=== PATIENT | female | born 2000 | race Two or more races ===

== ENCOUNTER 2024-08-01 11:05 | Observation (INO) | payer MEDICAID ==
--- NOTE | 2024-08-01 12:39 | DVH ---
Procedure: US BIOPHYSICAL PROFILE 08/01/2024 12:05 PM Indication: nuchal x 2 Comparison: None Technique: Sonogram of gravid uterus utilizing grayscale and color techniques. FINDINGS: Single living intrauterine gestation. Presentation: Cephalic Placenta: Posterior, no previa heart rate: 164 bpm LANDRY: 13.4 cm, DVP: 4.6 cm Maternal cervix: Not visualized Other: The umbilical cord is draped around neck Biophysical Profile: breathing score: 2 movement score: 2 tone: 2 Quantitative LANDRY score: 2 Total score: 8/8 IMPRESSION: 1. Single living as above. 2. Biophysical profile score: 8/8. 3. Nuchal cord.
--- NOTE | 2024-08-02 07:50 | DVHDS2 ---
Physician Discharge Progress N Final Diagnosis: nuchal cord gdm Operations or Procedures: Operations or Procedures nst,sono Condition on Discharge: Good Disposition: Home Discharge Instructions: Diet: Regular Activity: No Restrictions, As Tolerated Medications: na Follow Up Care: Specialist: 3d Discharge Statement: "Patient was advised to return to the ER or call 911 if any headaches, dizziness, shortness of breath, chest pain, abdominal pain, bleeding, fevers, or worsening of medical condition. Patient was counseled about treatment plan, medications, possible side effects, patientverbalized understanding. All questions were answered to the best of my ability. This discharge took greater then 30 minutes in planning, reviewing documentation, counseling the patient, and discussing with other team members." SELVIN MACK DO Aug 02, 2024 07:49
== END 2024-08-01 13:02 | disposition home or self-care (01) ==
LOC: LDRP 11:05
PROVIDERS: ADMIT Obstetrics & Gynecology; ATTEND Obstetrics & Gynecology
DX: O24.419 Gestational diabetes mellitus in pregnancy, unspecified control (principal); O69.81X0 Labor and delivery complicated by cord around neck, without compression, not applicable or unspecified; Z3A.35 35 weeks gestation of pregnancy; Z79.899 Other long term (current) drug therapy
CPT/HCPCS: 59025; 76818; 81002; 94760; G0378

== ENCOUNTER 2024-08-06 10:12 | Observation (INO) | payer MEDICAID ==
[2024-08-06] MEDS ORDERED: PREN-96 PO (11:10)
--- NOTE | 2024-08-06 12:02 | DVH ---
CLINICAL HISTORY: Gestational diabetes. Nuchal cord. COMPARISON: US BIOPHYSICAL PROFILE on DOS: 08/01/24 TECHNIQUE: biophysical profile was performed. Transabdominal sonographic images of the fetus we re obtained. FINDINGS: The fetus is in cephalic position. heart rate measures 158 BPM. Amniotic fluid index measures 14.8 cm. The placenta is posterior in position, without evidence of previa or abruption. The umbilical cord is visualized extending over the patient's shoulder, without visualized nuchal cord o n this exam. BPP profile is an overall score of 8/8, with 2/2 points for breathing, with at least one episode of breathing over a 30 second duration during a 30 minute observation, 2/2 points for m ovements, with 3 or more discrete body or limb movements, 2/2 points for tone, with one or more episodes of extremity extension with return to flexion, or opening and closing of hand, and 2/ 2 points for amniotic fluid, with at least 1 pocket of amniotic fluid that measures 2 cm in 2 perpend icular planes. IMPRESSION: 1. BPP score of 8/8. 2. Umbilical cord extends over the patient's shoulder, without evidence of nuchal cord on this exam.
[2024-08-06 12:06] LABS: Fern Testing Negative
[2024-08-06 12:19] LABS: Vaginal Bacteria Few; Vaginal Clue Cells Rare; Vaginal Epithelial Cells Moderate; Vaginal Trichomonas Not Present
--- NOTE | 2024-08-06 21:04 | DVHDS2 ---
Physician Discharge Progress N Final Diagnosis: testing for GDMA1 and nuchal Problems List: (1) Intact amniotic membranes Operations or Procedures: Operations or Procedures S: 24yo IUP@35.6wks presents in OB Triage with c/o of possible SROM yesterday night. Pt is scheduled for NST and BPP already. Denies UCs/VB/VALDES/vision changes/RUQ pain. Endorses +FM. O: VSS NST reactive (verified by 2 RNs) SSE by RN; negative pooling and Nitrazine Laboratory Tests Test 08/06/24 11:12 08/06/24 11:57 Range/Units POC Glucose 86 70-106 mg/dl Amniotic Fluid Ferning Test Negative Vaginal WBC (Wet Prep) Rare Vaginal RBC (Wet Prep) Rare Vaginal Epithelial Cells (Wet Prep) Moderate Vaginal Bacteria (Wet Prep) Few Vaginal Trichomonas (Wet Prep) Not present Vaginal Yeast (Wet Prep) None seen Vaginal Clue Cells (Wet Prep) Rare A: 24yo IUP@35.6wks GDMA1 Intact amniotic membranes P: D/C home kick counts and Preeclampsia warning signs reviewed. PTL precautions given and when to return to the hospital. Other Interventions Other Interventions [place] [address] Ph: [phone] DIAGNOSTIC IMAGING Diagnostic Imaging Report : [id number] Signed PATIENT: RADHA MORGANCT: [id number] UNIT: [id number] : 2000 LOC: [facility] ROOM / BED: TRIAGE2 / A AGE / SEX: 24 / F ADM STATUS: ADM IN SERVICE 1031 ORDERING PHYSICIAN: ELEANOR JAMES CNM PROCEDURE(s): BPP - BIOPHYSICAL PROFILE REASON: GDMA1/nuchal ORDER NUMBER(s): [id number], ACCESSION NUMBER(s): [id number] CLINICAL HISTORY: Gestational diabetes. Nuchal cord. COMPARISON: US BIOPHYSICAL PROFILE on DOS: 08/01/24 TECHNIQUE: biophysical profile was performed. Transabdominal sonographic images of the fetus were obtained. FINDINGS: The fetus is in cephalic position. heart rate measures 158 BPM. Amniotic fluid index measures 14.8 cm. The placenta is posterior in position, without evidence of previa or abruption. The umbilical cord is visualized extending over the patient's shoulder, without visualized nuchal cord on this exam. BPP profile is an overall score of 8/8, with 2/2 points for br eathing, with at least one episode of breathing over a 30 second duration during a 30 minute observation, 2/2 points for movements, with 3 or more discrete body or limb movements, 2/2 points for tone, with one or more episodes of extremity extension with return to flexion, or opening and closing of hand, and 2/2 points for amniotic fluid, with at least 1 pocket of amniotic fluid that measures 2 cm in 2 perpendicular planes. IMPRESSION: 1. BPP score of 8/8. 2. Umbilical cord extends over the patient's shoulder, without evidence of nuchal cord on this exam. ATED BY: MALATHI GAO DO DICTATED DATE/TIME: 08/06/24 1200 SIGNED BY: MALATHI GAO DO SIGNED DATE/TIME: 08/06/24 1200 CC: Condition on Discharge: Stable Disposition: Home Discharge Instructions: Diet: Consistent carbohydrate Activity: No Restrictions, As Tolerated Medications: See med list Follow Up Care: Specialist: F/U in 1 week Discharge Statement: "Patient was advised to return to the ER or call 911 if any headaches, dizziness, shortness of breath, chest pain, abdominal pain, bleeding, fevers, or worsening of medical condition. Patient was counseled about treatment plan, medications, possible side effects, patientverbalized understanding. All questions were answered to the best of my ability. This discharge took greater then 30 minutes in planning, reviewing documentation, counseling the patient, and discussing with other team members." ELEANOR JAMES CNM Aug 06, 2024 21:04
== END 2024-08-06 12:58 | disposition home or self-care (01) ==
LOC: LDRP 10:12
PROVIDERS: ADMIT Obstetrics & Gynecology; ATTEND Obstetrics & Gynecology
DX: O69.81X0 Labor and delivery complicated by cord around neck, without compression, not applicable or unspecified (principal); O24.419 Gestational diabetes mellitus in pregnancy, unspecified control; Z98.890 Other specified postprocedural states; Z79.899 Other long term (current) drug therapy; Z3A.35 35 weeks gestation of pregnancy
CPT/HCPCS: 59025; 76818; 81002; 82948; 82962; 87210; 94760; G0378; Q0114

== ENCOUNTER 2024-08-12 08:05 | Observation (INO) | payer MEDICAID ==
[~2024-08-12 08:05] MED LIST: PREN-96 PO
--- NOTE | 2024-08-12 09:53 | DVH ---
BIOPHYSICAL PROFILE HISTORY: GDMA1/Nuchal TECHNIQUE: Multiple transabdominal real-time grayscale sonographic images through the gravid uterus of the fetus with duplex Doppler color flow and M-mode spectral analysis FINDINGS: BIOPHYSICAL PROFILE: breathing score: 2 movement score: 2 tone score: 2 Quantitative LANDRY score: 2 (LANDRY: 17.6 Cm.) Total score: 8 The cervix not well visualized. Single live fetus in cephalic presentation. heart rate 132 beats per minute. Posterior placenta without previa or abruption IMPRESSION: Biophysical profile score: 8
--- NOTE | 2024-08-13 15:11 | DVHDS2 ---
Physician Discharge Progress N Final Diagnosis: nuchal cord,gdm Operations or Procedures: Operations or Procedures nst,,sono Condition on Discharge: Good Disposition: Home Discharge Instructions: Diet: Consistent carbohydrate Activity: No Restrictions, As Tolerated Follow Up/Referral: [facility] Monday[facility] at 2:00 pm for NST/BPP Medications: na Follow Up Care: Specialist: 3d Discharge Statement: "Patient was advised to return to the ER or call 911 if any headaches, dizziness, shortness of breath, chest pain, abdominal pain, bleeding, fevers, or worsening of medical condition. Patient was counseled about treatment plan, medications, possible side effects, patientverbalized understanding. All questions were answered to the best of my ability. This discharge took greater then 30 minutes in planning, reviewing documentation, counseling the patient, and discussing with other team members." SELVIN MACK DO Aug 13, 2024 15:11
== END 2024-08-12 09:55 | disposition home or self-care (01) ==
LOC: UNDOADMOB 08:05 → LDRP 08:05 → UNDODISOB 09:55
PROVIDERS: ADMIT Obstetrics & Gynecology; ATTEND Obstetrics & Gynecology
DX: O24.419 Gestational diabetes mellitus in pregnancy, unspecified control (principal); O69.81X0 Labor and delivery complicated by cord around neck, without compression, not applicable or unspecified; Z98.890 Other specified postprocedural states; Z79.899 Other long term (current) drug therapy; Z3A.36 36 weeks gestation of pregnancy
CPT/HCPCS: 59025; 76818; 81002; 82948; 82962; G0378

== ENCOUNTER 2024-08-19 09:13 | Observation (INO) | payer MEDICAID ==
--- NOTE | 2024-08-19 16:47 | DVH ---
Procedure: US BIOPHYSICAL PROFILE 08/19/2024 03:57 PM Indication: gdma1/ nuchal cord Comparison: US BIOPHYSICAL PROFILE on DOS: 08/12/24, US BIOPHYSICAL PROFILE on DOS: 08/06/24, US BIOPHY SICAL PROFILE on DOS: 08/01/24 Technique: Sonogram of gravid uterus utilizing grayscale and color techniques. FINDINGS: Single living intrauterine gestation. Presentation: Cephalic Placenta: Fundal heart rate: 148 bpm LANDRY: 12.6 cm, DVP: 4.5 cm Maternal cervix: Not visualized Biophysical Profile: breathing score: 2 movement score: 2 tone: 2 Quantitative LANDRY score: 2 Total score: 8/8 IMPRESSION: 1. Single living as above. 2. Biophysical profile score: 8/8.
--- NOTE | 2024-08-19 21:32 | DVHDS2 ---
Physician Discharge Progress N Final Diagnosis: GDMA1 Secondary Diagnosis: Encounter for surveillance Operations or Procedures: Operations or Procedures NST/BPP/LANDRY Accucheck all WNL Condition on Discharge: Stable Disposition: Home Discharge Instructions: Diet: Consistent carbohydrate Activity: No Restrictions, As Tolerated Follow Up/Referral: as scheduled Medications: N/A Follow Up Care: Discharge Statement: "Patient was advised to return to the ER or call 911 if any headaches, dizziness, shortness of breath, chest pain, abdominal pain, bleeding, fevers, or worsening of medical condition. Patient was counseled about treatment plan, medications, possible side effects, patientverbalized understanding. All questions were answered to the best of my ability. This discharge took greater then 30 minutes in planning, reviewing documentatio n, counseling the patient, and discussing with other team members." HECTOR MONTE DO Aug 19, 2024 21:32
== END 2024-08-19 16:41 | disposition home or self-care (01) ==
LOC: UNDOADMOB 15:05 → LDRP 15:05 → UNDODISOB 16:41
PROVIDERS: ADMIT Obstetrics & Gynecology; ATTEND Obstetrics & Gynecology
DX: O69.81X0 Labor and delivery complicated by cord around neck, without compression, not applicable or unspecified (principal); O24.419 Gestational diabetes mellitus in pregnancy, unspecified control; O21.2 Late vomiting of pregnancy; R51.9 Headache, unspecified; Z3A.37 37 weeks gestation of pregnancy; Z79.899 Other long term (current) drug therapy; Z98.890 Other specified postprocedural states
CPT/HCPCS: 59025; 76818; 81002; 82948; 82962; 94760; G0378

== ENCOUNTER 2024-08-26 14:36 | Observation (INO) | payer MEDICAID ==
--- NOTE | 2024-08-26 16:02 | DVH ---
BIOPHYSICAL PROFILE HISTORY: GDMA1, double nuchal Comparison Study: 08/19/2024 TECHNIQUE: Multiple real-time grayscale sonographic images through the gravid uterus of the fetus wi th duplex Doppler color flow and M-mode spectral analysis FINDINGS: BIOPHYSICAL PROFILE: breathing score: 2 movement score: 2 tone score: 2 Quantitative LANDRY score: 2 (LANDRY: 10.8 Cm.) Total score: 8 The cervix is not visualized Single live fetus in cephalic presentation. heart rate 139 beats per minute. Fundal placenta without previa or abruption Nuchal cord is present. IMPRESSION: Biophysical profile score: 8/8 Nuchal cord is present at this time.
--- NOTE | 2024-08-26 17:02 | DVHDS2 ---
Physician Discharge Progress N Final Diagnosis: 3rd trim , GDMA1 nuchal cord Secondary Diagnosis: Encounter for surveillance Operations or Procedures: Operations or Procedures NST/BPP/LANDRY Accucheck ALL WNL Commentary: Commentary status reassuring PATIENT: RADHA MORGANCT: [id number] UNIT: [id number] : 2000 LOC: [facility] ROOM / BED: TRIAGE3 / A AGE / SEX: 24 / F ADM STATUS: ADM IN SERVICE 1450 ORDERING PHYSICIAN: HECTOR MONTE DO PROCEDURE(s): BPP - BIOPHYSICAL PROFILE REASON: GDMA1, double nuchal ORDER NUMBER(s): [id number], ACCESSION NUMBER(s): [id number] BIOPHYSICAL PROFILE HISTORY: GDMA1, double nuchal Comparison Study: 08/19/2024 TECHNIQUE: Multiple real-time grayscale sonographic images through the gravid uterus of the fetus with duplex Doppler color flow and M-mode spectral analysis FINDINGS: BIOPHYSICAL PROFILE: breathing score: 2 movement score: 2 tone score: 2 Quantitative LANDRY score: 2 (LANDRY: 10.8 Cm.) Total score: 8 The cervix is not visualized Single live fetus in cephalic presentation. heart rate 139 beats per minute. Fundal placenta without previa or abruption Nuchal cord is present. IMPRESSION: Biophysical profile score: 8/8 Nuchal cord is present at this time. ATED BY: ELKIN VERGARA MD DICTATED DATE/TIME: 08/26/24 1600 Condition on Discharge: Stable Disposition: Home Discharge Instructions: Diet: Regular Activity: No Restrictions, As Tolerated Follow Up/Referral: as scheduled. Medications: N/A Follow Up Care: Discharge Statement: "Patient was advised to return to the ER or call 911 if any headaches, dizziness, shortness of breath, chest pain, abdominal pain, bleeding, fevers, or worsening of medical condition. Patient was counseled about treatment plan, medications, possible side effects, patientverbalized understanding. All questions were answered to the best of my ability. This discharge took greater then 30 minutes in planning, reviewing doc umentation, counseling the patient, and discussing with other team members." Visit Coding OBGYN Date of Service: Aug 26, 2024 Billing Provider: HECTOR MONTE DO GRAPHITE PAN DRIER TENDER Common Visit Codes: 38985-NEW/OBS SAME DATE (MOD) GRAPHITE PAN DRIER TENDER Procedure Codes: 67668-71- NON-STRESS TEST HECTOR MONTE DO Aug 26, 2024 17:02
== END 2024-08-26 16:04 | disposition home or self-care (01) ==
LOC: UNDOADMOB 14:36 → LDRP 14:36
PROVIDERS: ADMIT Obstetrics & Gynecology; ATTEND Obstetrics & Gynecology
DX: O69.81X0 Labor and delivery complicated by cord around neck, without compression, not applicable or unspecified (principal); O24.419 Gestational diabetes mellitus in pregnancy, unspecified control; Z98.890 Other specified postprocedural states; Z79.899 Other long term (current) drug therapy; Z3A.38 38 weeks gestation of pregnancy
CPT/HCPCS: 59025; 76818; 81002; 94760; G0378

== ENCOUNTER 2024-09-01 19:01 | Inpatient (IN) | payer MEDICAID ==
[~2024-09-01] VITALS: Ht 170.2 cm; Wt 96.6 kg
[2024-09-01] MEDS ORDERED: LIDOCAINE 2%HCL (LOCAL ANESTH.) INJ 20ML MDV IJ PRN (19:45)
[2024-09-01] MEDS ORDERED: BUTORPHANOL TARTRATE 2 MG/1 ML VIAL IV PRN ×2 (19:45)
[2024-09-01 20:53] LABS: Basophils # (auto) 0 10 ^3/uL (0-0.2); Eosinophils # (auto) 0 10 ^3/uL (0-0.8); Eosinophils % (auto) 0.4 % (0.0-7.0); Hemoglobin 9.7 g/dL (12.2-16.2); Mean Corpuscular Hemoglobin 25.6 pg (28.0-32.0); Monocytes # (auto) 0.6 10 ^3/uL (0-1.3); Red Cell Distribution Width 14.6 % (11.8-14.3)
[2024-09-01 20:56] LABS: Basophils % (auto) 0.4 % (0.0-2.0); Hematocrit 29.4 % (36.0-46.0); Lymphocytes # (auto) 2.5 10 ^3/uL (0.4-5.4); Lymphocytes % (auto) 27.8 % (10.0-50.0); Mean Corpuscular Hgb Conc. 32.9 g/dL (32.0-36.0); Monocytes % (auto) 6.4 % (0.0-12.0); Neutrophils # (auto) 5.7 10 ^3/uL (1.6-8.6); Nucleated Red Blood Cells % 0.1 %; Platelet Count (auto) 235 10^3/uL (140-450); Red Blood Cells 3.77 10^6/uL (4.0-5.20); White Blood Cell 8.8 10^3/uL (4.4-10.8)
[2024-09-01 20:59] LABS: Urine Bacteria FEW /hpf (None Seen); Urine Blood Negative /uL (Negative); Urine Clarity Turbid (Clear); Urine Color Yellow (Yellow); Urine Mucus FEW (None Seen); Urine Protein, UAD TRACE (Negative); Urine Specific Gravity 1.022 (1.001-1.035); Urine Squamous Epithelial Cell FEW /hpf (<5); Urine Urobilinogen Normal (Negative); Urine WBC 24 /HPF (0-5); Urine pH 6.5 (5.0-9.0)
[2024-09-01 21:05] LABS: Alanine Aminotransferase 11 U/L (7-40); Albumin 4.3 g/dL (3.2-4.8); Anion Gap 11 (5-15); Aspartate Aminotransferase 13 U/L (13-40); BUN/Creatinine Ratio 14.5 (10.0-20.0); Calcium 9.7 mg/dL (8.7-10.4); Carbon Dioxide 22 mmol/L (20-31); Chloride 104 mmol/L (98-107); Glucose 87 mg/dL (74-106); Potassium 3.6 mmol/L (3.5-5.1); Sodium 137 mmol/L (136-145)
[2024-09-01 21:06] LABS: Alkaline Phosphatase 164 U/L (46-116); Bilirubin, Total 1.5 mg/dL (0.2-1.0); Blood Urea Nitrogen 9 mg/dL (9-23); Total Protein 6.6 g/dL (5.7-8.2)
[2024-09-01 21:07] LABS: INR 0.9 (0.9-1.15); Partial Thromboplastin Time 25.2 SEC (24.5-34.5); Prothrombin Time 9.6 sec (9.3-11.8)
[2024-09-01 21:13] LABS: Amphetamine Screen, Urine Neg (NEGATIVE); Barbiturate Scree,Urine Neg (NEGATIVE); Benzodiazephine Screen, Urine Neg (NEGATIVE); Cannabinoid Screen, Urine Neg (NEGATIVE); Cocaine Screen, Urine Neg (NEGATIVE); Opiate Scree,Urine Neg (NEGATIVE); Phencyclidine Screen, Urine Neg (NEGATIVE)
--- NOTE | 2024-09-01 21:21 | DVHHP2 ---
OB CC & HPI Date Date of Admission: Sep 01, 2024 Patient Identification: : 3 Para: 2 EDC: Sep 04, 2024 Chief Complaints: Reason for admission: induction of labor Indication for induction: history of rapid labor, medical complication (GDMA1) Admission Nurse Assessment Rev: Yes History of Present Complaints Ms Timbo Wolff presents to place for scheduled IOL for GDMA1. She is G3,2000 with EDC of 09/04/24, EGA 39w 3d. complicated by GDMA1. maternal screening reports Ms Timbo Santiago is SMA carrier. Past Medical History Cardiac: No pertinent Hx Pulmonary: No pertinent Hx Central Nervous System: No pertinent Hx GI: No pertinent Hx Hemotology/Oncology: No pertinent Hx Hepatobiliary: No pertinent Hx Psychiatric: No pertinent Hx Musculoskeletal: No pertinent Hx Rheumotologic: No pertinent Hx Infectious Disease: No peritnent Hx ENT: No pertinent Hx Renal/: No pertinent Hx Dermatology: No pertinent Hx Past Surgical History: No pertinent Hx OB History OB History Care: Good Care Ultrasounds: Normal mid trimester US Obstetrical Complications: Gestational Diabetes Medical Complications: None Other Concerns: Spinal Muscular Atrophy (SMA) carrier. Patient with h/o macrosomic infant. State d G#1 wt was5Kg and G#2 weight Almost 10Lbs Allergies: Coded Allergies: NO KNOWN ALLERGIES (Unverified , 09/01/24) Home Meds Reported Medications Vit W/ Ferrous Fumara ( One Daily) Daily Tab, 1 TAB PO DAILY, #90 TAB 3 Refills 08/06/24 Current Medications Current Medications Medications (Trade) Dose Ordered Sig/Jono Route PRN Reason Start Time Stop Time Status Last Admin Lactated Ringer's 1,000 ml @ 125 mls/hr Q8H IV 09/01/24 19:45 Nalbuphine HCl (Nubain) 10 mg Q4HP PRN IV MODERATE PAIN (4-6 PAIN SCALE) 09/01/24 19:45 Witch Shalini (Tucks) 1 pad PRN PRN TOP PERINEAL AREA DISCOMFORT 09/01/24 19:45 Sodium Lauryl Sulfate (Phisoderm) 240 ml PRN PRN TOP PERINEAL AREA DISCOMFORT 09/01/24 19:45 Benzocaine (Dermoplast) 1 applic PRN PRN TOP PERINEAL AREA DISCOMFORT 09/01/24 19:45 Butorphanol Tartrate (Stadol Injection) 1 mg Q4HPRN PRN IV MODERATE PAIN (4-6 PAIN SCALE) 09/01/24 19:45 Butorphanol Tartrate (Stadol Injection) 2 mg Q4HPRN PRN IV SEVERE PAIN (7-10 PAIN SCALE) 09/01/24 19:45 Lidocaine HCl (Xylocaine) 20 ml ONCE PRN IJ PERINEAL AREA DISCOMFORT 09/01/24 19:45 Family & Social History Family/Social History Past Family/Social History: Mother and all uncles and Aunts have Diabetes. Mother has HTN and cardiac disease; has a pace-maker in place. Also had h/o pre-eclampsia when with patient Blood Type: A+ Rubella: not immune RPR/VDRL: Negative GBS Status: Negative HBsAG: Negative Review of Systems Constitutional: No symptom reported Ears, Nose, & Throat: No symptom reported Eyes: No symptom reported Pulmonary/Respiratory: No symptom reported Cardiovascular: No symptom reported Gastrointestinal: No symptom reported Genitourinary: No symptom reported Musculoskeletal: No symptom reported Skin: No symptom reported Psychiatric: No symptom reported Endocrine: No symptom reported Hemotologic/Lymphatic: No symptom reported OB Admission Exam Physical Exam HEENT: TMs Normal, Fontanelles Normal, Nasal Mucosa Normal, Eyes non-injected, Oropharynx Normal, PERRLA, Moist Membranes, EOMI Heart: Rhythm Normal Lungs: Clear Abdomen: Non tender Extremities: Normal Reflexes: Normal Cervical Dilatation: 1cm Effacement: 50% Station: -3 Membranes: Intact Heart Rate: 140's Accelerations: Accelerations Present Decelerations: No Decelerations Personal Fitness Manager Variability: Average (6-25) Contractions on Admission: < 5 Minutes Apart Date/Time Contractions Began: Pt does not feel contractions Intensity: Mild (on palpation) OB Plan Plan Admitting Diagnosis: IUP at 39w 3d GDMA1 Induction of labor Rubella NI SMA carrier Plan: Induction Induction Methd: Misoprostol protocol Other Plan: IOL process, cervical ripening with medication, cervical ripening balloon, oxytocin etc including the risks, benefits and options discussed with the pat ient. Informed consent obtained. Risk of pain, bleeding, infection, discussed with the patient and partner Consent for possible blood transfusion obtained. All questions answered. Admit to Place for scheduled IOL Routine L&D admission orders Misoprostol per protocol EFM per policy & protocol Intrauterine resuscitation PRN Labor analgesia PRN Encourage frequent position change and ambulation to facilitate labor & descent Supportive Care Anticipate Visit Coding OBGYN Date of Service: Sep 01, 2024 Billing Provider: FADUMO FERNÁNDEZ CNM CUSHION SEWER Common Visit Codes: 68949-FRY/OBS SAME DATE (HIGH) CUSHION SEWER Procedure Codes: 59878-82- NON-STRESS TEST FADUMO FERNÁNDEZ CNM Sep 01, 2024 21:21
[2024-09-01] MEDS: LACTATED RINGER'S 1,000 ML IV SCH (23:20)
[2024-09-02] MEDS ORDERED: miSOPROStol 50 MCG per PRE-CUT 1/2 TAB PO PRN (02:00)
[2024-09-02] MEDS: DERMOPLAST 60ML BOTTLE TOP PRN (04:05)
[2024-09-02] MEDS: PHISODERM TOP SOLN 240ML BTL TOP PRN (04:05)
[2024-09-02] MEDS: WITCH HAZEL-GLYCERIN PAD TOP PRN (04:05)
--- NOTE | 2024-09-02 04:45 | DVHPN2 ---
OB Labor Progress Note Date and Time Seen Date Seen: Sep 02, 2024 Time Seen: 03:40 Subjective Patient reports: No new complaints Monitoring Method Monitoring Method: External Heart Rate Heart Rate Baseline: 140 Heart Rate Variability: Moderate Presence of FHR Accelerations: Yes Presence of FHR Decelerations: No Changes in Trends of Patterns: No Are all 5 Components of the FH: Yes Contractions Contractions Frequency: Other (2-3min) Duration of Contraction: 50 Contractions Intensity: Mild Contractions Resting Tone: Relaxed Membranes Membranes: Intact Vaginal Exam Vag Exam Deferred: No Vaginal Exam Dilation: 1 (1.5cm) Vaginal Exam Effacement: 50 Vaginal Exam Station: -3 Vaginal Exam Presentation: VTX Vaginal Exam Show: None Medications Medications - Pitocin: No Medication - Epidural: No Lab Results Lab Results Current Medications Medications (Trade) Dose Ordered Sig/Jono Start Time Stop Time Status Last Admin Dose Admin Lactated Ringer's 1,000 ml @ 125 mls/hr Q8H 09/01/24 19:45 09/02/24 01:07 125 MLS/HR Nalbuphine HCl (Nubain) 10 mg Q4HP PRN 09/01/24 19:45 Witch Shalini (Tucks) 1 pad PRN PRN 09/01/24 19:45 Sodium Lauryl Sulfate (Phisoderm) 240 ml PRN PRN 09/01/24 19:45 Benzocaine (Dermoplast) 1 applic PRN PRN 09/01/24 19:45 Butorphanol Tartrate (Stadol Injection) 1 mg Q4HPRN PRN 09/01/24 19:45 Butorphanol Tartrate (Stadol Injection) 2 mg Q4HPRN PRN 09/01/24 19:45 Lidocaine HCl (Xylocaine) 20 ml ONCE PRN 09/01/24 19:45 Misoprostol (Cytotec) 50 mcg Q4HPRN PRN 09/02/24 02:00 Laboratory Tests Test 09/02/24 00:03 09/01/24 20:38 09/01/24 20:04 09/01/24 19:36 Range/Units POC Glucose 89 70-106 mg/dl Urine Color Yellow Yellow Urine Clarity Turbid H Clear Urine pH 6.5 5.0-9.0 Urine Specific [place] 1.022 1.001-1.035 Urine Protein Trace H Negative Urine Ketones Negative Negative Urine Blood Negative Negative /uL Urine Nitrite Negative Negative Urine Bilirubin Negative Negative Urine Urobilinogen Normal Negative mg/dL Urine Leukocyte Esterase 2+ Negative /uL Urine RBC 1 0 - 4 /hpf Urine Microscopic WBC 24 H 0-5 /HPF Urine Squamous Epithelial Cells Few <5 /hpf Urine Calcium Oxalate Crystals Mod None Seen Urine Bacteria Few H None Seen /hpf Urine Mucus Few None Seen Urine Glucose Normal Normal mg/dL Urine Opiates Screen Neg NEGATIVE Urine Fentanyl Screen Neg NEGATIVE Urine Barbiturates Screen Neg NEGATIVE Urine Phencyclidine Screen Neg NEGATIVE Urine Amphetamines Screen Neg NEGATIVE Urine Benzodiazepines Screen Neg NEGATIVE Urine Cocaine Screen Neg NEGATIVE Urine Cannabinoids Screen Neg NEGATIVE White Blood Count 8.8 4.4-10.8 10^3/uL Red Blood Count 3.77 L 4.0-5.20 10^6/uL Hemoglobin 9.7 L 12.2-16.2 g/dL Hematocrit 29.4 L 36.0-46.0 % Mean Corpuscular Volume 78.0 L 80.0-100.0 fL Mean Corpuscular Hemoglobin 25.6 L 28.0-32.0 pg Mean Corpuscular Hemoglobin Concent 32.9 32.0-36.0 g/dL Red Cell Distribution Width 14.6 H 11.8-14.3 % Platelet Count 235 140-450 10^3/uL Mean Platelet Volume 7.4 6.9-10.8 fL Neutrophils (%) (Auto) 65.0 37.0-80.0 % Lymphocytes (%) (Auto) 27.8 10.0-50.0 % Monocytes (%) (Auto) 6.4 0.0-12.0 % Eosinophils (%) (Auto) 0.4 0.0-7.0 % Basophils (%) (Auto) 0.4 0.0-2.0 % Neutrophils # (Auto) 5.7 1.6-8.6 10 ^3/uL Lymphocytes # (Auto) 2.5 0.4-5.4 10 ^3/uL Monocytes # (Auto) 0.6 0-1.3 10 ^3/uL Eosinophils # (Auto) 0 0-0.8 10 ^3/uL Basophils # (Auto) 0 0-0.2 10 ^3/uL Nucleated Red Blood Cells 0.1 % Prothrombin Time 9.6 9.3-11.8 sec Prothrombin Time INR 0.90 0.9-1.15 Activated Partial Thromboplast Time 25.2 24.5-34.5 SEC Sodium Level 137 136-145 mmol/L Potassium Level 3.6 3.5-5.1 mmol/L Chloride Level 104 98-107 mmol/L Carbon Dioxide Level 22 20-31 mmol/L Anion Gap 11 5-15 Blood Urea Nitrogen 9 9-23 mg/dL Creatinine 0.62 0.550-1.02 mg/dL Glomerular Filtration Rate Calc 128 >90 mL/min BUN/Creatinine Ratio 14.5 10.0-20.0 Serum Glucose 87 74-106 mg/dL Calcium Level 9.7 8.7-10.4 mg/dL Total Bilirubin 1.5 H 0.2-1.0 mg/dL Aspartate Amino Transferase (AST) 13 13-40 U/L Alanine Aminotransferase (ALT) 11 7-40 U/L Alkaline Phosphatase 164 H 46-116 U/L Total Protein 6.6 5.7-8.2 g/dL Albumin 4.3 3.2-4.8 g/dL Rapid Plasma Reagin Pending Treponema pallidum Ab (TP-PA) Pending Hepatitis C Antibody Negative Negative Chlamydia trachomatis (SIENNA) Pending Neisseria gonorrhoeae (SIENNA) Pending Assessment Assessment IUP at 38w 5d GDMA1 Scheduled IOL for above Rubella NI SMA Carrier Category I FHR Tracing Plan Plan Expectant management now d/t frequent UCs Ambulation and exercises to facilitate descent encouraged Will consider insertion of cervical ripening (Cook's) balloon after ambulation EFM per communication order Intrauterine resuscitation PRN Labor analgesia PRN Anticipate Plan discussed with: Patient Visit Coding OBGYN Date of Service: Sep 02, 2024 Billing Provider: FADUMO FERNÁNDEZ CNM REPORTING MANAGER Common Visit Codes: 20882-[id number] INP/OBS CARE(HIGH) FADUMO FERNÁNDEZ CNM Sep 02, 2024 04:45
--- NOTE | 2024-09-02 05:45 | DVHPN2 ---
OB Labor Progress Note Date and Time Seen Date Seen: Sep 02, 2024 Time Seen: 05:28 Subjective Patient reports: No new complaints Monitoring Method Monitoring Method: External Heart Rate Heart Rate Baseline: 135 Heart Rate Variability: Moderate Presence of FHR Accelerations: Yes Presence of FHR Decelerations: No Changes in Trends of Patterns: No Are all 5 Components of the FH: Yes Contractions Duration of Contraction: 60 Contractions Intensity: Mild Contractions Resting Tone: Relaxed Membranes Membranes: Intact Vaginal Exam Vaginal Exam Effacement: 50 Vaginal Exam Station: -3 Vaginal Exam Show: Small Medications Medications - Pitocin: No Medication - Epidural: No Lab Results Lab Results Current Medications Medications (Trade) Dose Ordered Sig/Jono Start Time Stop Time Status Last Admin Dose Admin Lactated Ringer's 1,000 ml @ 125 mls/hr Q8H 09/01/24 19:45 09/02/24 01:07 125 MLS/HR Nalbuphine HCl (Nubain) 10 mg Q4HP PRN 09/01/24 19:45 Witch Shalini (Tucks) 1 pad PRN PRN 09/01/24 19:45 Sodium Lauryl Sulfate (Phisoderm) 240 ml PRN PRN 09/01/24 19:45 Benzocaine (Dermoplast) 1 applic PRN PRN 09/01/24 19:45 Butorphanol Tartrate (Stadol Injection) 1 mg Q4HPRN PRN 09/01/24 19:45 Butorphanol Tartrate (Stadol Injection) 2 mg Q4HPRN PRN 09/01/24 19:45 Lidocaine HCl (Xylocaine) 20 ml ONCE PRN 09/01/24 19:45 Misoprostol (Cytotec) 50 mcg Q4HPRN PRN 09/02/24 02:00 Laboratory Tests Test 09/02/24 04:02 09/01/24 20:38 09/01/24 20:04 09/01/24 19:36 Range/Units POC Glucose 96 70-106 mg/dl Urine Color Yellow Yellow Urine Clarity Turbid H Clear Urine pH 6.5 5.0-9.0 Urine Specific [place] 1.022 1.001-1.035 Urine Protein Trace H Negative Urine Ketones Negative Negative Urine Blood Negative Negative /uL Urine Nitrite Negative Negative Urine Bilirubin Negative Negative Urine Urobilinogen Normal Negative mg/dL Urine Leukocyte Esterase 2+ Negative /uL Urine RBC 1 0 - 4 /hpf Urine Microscopic WBC 24 H 0-5 /HPF Urine Squamous Epithelial Cells Few <5 /hpf Urine Calcium Oxalate Crystals Mod None Seen Urine Bacteria Few H None Seen /hpf Urine Mucus Few None Seen Urine Glucose Normal Normal mg/dL Urine Opiates Screen Neg NEGATIVE Urine Fentanyl Screen Neg NEGATIVE Urine Barbiturates Screen Neg NEGATIVE Urine Phencyclidine Screen Neg NEGATIVE Urine Amphetamines Screen Neg NEGATIVE Urine Benzodiazepines Screen Neg NEGATIVE Urine Cocaine Screen Neg NEGATIVE Urine Cannabinoids Screen Neg NEGATIVE White Blood Count 8.8 4.4-10.8 10^3/uL Red Blood Count 3.77 L 4.0-5.20 10^6/uL Hemoglobin 9.7 L 12.2-16.2 g/dL Hematocrit 29.4 L 36.0-46.0 % Mean Corpuscular Volume 78.0 L 80.0-100.0 fL Mean Corpuscular Hemoglobin 25.6 L 28.0-32.0 pg Mean Corpuscular Hemoglobin Concent 32.9 32.0-36.0 g/dL Red Cell Distribution Width 14.6 H 11.8-14.3 % Platelet Count 235 140-450 10^3/uL Mean Platelet Volume 7.4 6.9-10.8 fL Neutrophils (%) (Auto) 65.0 37.0-80.0 % Lymphocytes (%) (Auto) 27.8 10.0-50.0 % Monocytes (%) (Auto) 6.4 0.0-12.0 % Eosinophils (%) (Auto) 0.4 0.0-7.0 % Basophils (%) (Auto) 0.4 0.0-2.0 % Neutrophils # (Auto) 5.7 1.6-8.6 10 ^3/uL Lymphocytes # (Auto) 2.5 0.4-5.4 10 ^3/uL Monocytes # (Auto) 0.6 0-1.3 10 ^3/uL Eosinophils # (Auto) 0 0-0.8 10 ^3/uL Basophils # (Auto) 0 0-0.2 10 ^3/uL Nucleated Red Blood Cells 0.1 % Prothrombin Time 9.6 9.3-11.8 sec Prothrombin Time INR 0.90 0.9-1.15 Activated Partial Thromboplast Time 25.2 24.5-34.5 SEC Sodium Level 137 136-145 mmol/L Potassium Level 3.6 3.5-5.1 mmol/L Chloride Level 104 98-107 mmol/L Carbon Dioxide Level 22 20-31 mmol/L Anion Gap 11 5-15 Blood Urea Nitrogen 9 9-23 mg/dL Creatinine 0.62 0.550-1.02 mg/dL Glomerular Filtration Rate Calc 128 >90 mL/min BUN/Creatinine Ratio 14.5 10.0-20.0 Serum Glucose 87 74-106 mg/dL Calcium Level 9.7 8.7-10.4 mg/dL Total Bilirubin 1.5 H 0.2-1.0 mg/dL Aspartate Amino Transferase (AST) 13 13-40 U/L Alanine Aminotransferase (ALT) 11 7-40 U/L Alkaline Phosphatase 164 H 46-116 U/L Total Protein 6.6 5.7-8.2 g/dL Albumin 4.3 3.2-4.8 g/dL Rapid Plasma Reagin Pending Treponema pallidum Ab (TP-PA) Pending Hepatitis C Antibody Negative Negative Chlamydia trachomatis (SIENNA) Pending Neisseria gonorrhoeae (SIENNA) Pending Assessment Assessment IUP at 39w 5d GDMA1 Rubella NI SMA Carrier Category I FHR Tracing Plan Plan Cervical Ripening Balloon (Cook's) inserted with 60mLs of fluid each in U & V balloon. Continue EFM Frequent position change to facilitate labor Intrauterine resuscitation PRN Labor Analgesia PRN Supportive care Anticipate Plan discussed with: Patient, Spouse Visit Coding OBGYN Date of Service: Sep 02, 2024 Billing Provider: FADUMO FERNÁNDEZ CNM INDEPENDENT CONTRACTOR Common Visit Codes: [id number] INP/OBS CARE(HIGH) FADUMO FERNÁNDEZ CNM Sep 02, 2024 05:45
[2024-09-02] MEDS ORDERED: TERBUTALINE SULFATE 1 MG/ML 1ML VIAL SC PRN (06:30)
[2024-09-02] MEDS: LACT. RINGERS/OXYTOCIN 20UNITS 1,000 ML IV SCH (07:16)
[2024-09-02] MEDS: NALBUPHINE HCL 10 MG/1ml INJECTION IV PRN (08:55)
[2024-09-02] MEDS: NALOXONE HCL 0.4 MG/ML VIAL IV ONE (16:00)
[2024-09-02] MEDS: LIDOCAINE HCL 2 %PF INJ 10ML AMP IJ ONE (16:00)
[2024-09-02] MEDS ORDERED: LIDOCAINE HCL 2 %PF INJ 10ML AMP IJ ONE (16:10)
[2024-09-02] MEDS ORDERED: fentaNYL CITRATE 100 MCG/2 ML VL ONE (16:10)
[2024-09-02] MEDS ORDERED: ePHEDrine SULFATE 50 MG/ML AMP ONE (16:10)
[2024-09-02] MEDS ORDERED: NALOXONE HCL 0.4 MG/ML VIAL ONE (16:10)
[2024-09-02] MEDS ORDERED: ROPIVACAINE HCL 200 ML ONE (16:10)
[2024-09-02] MEDS ORDERED: Lidocaine W-Epinephrine 1.5%-1:200,000 INJ 10ml Vial ONE (16:10)
[2024-09-02] MEDS: ePHEDrine SULFATE 50 MG/ML AMP IV ONE (16:40)
[2024-09-02] MEDS: fentaNYL CITRATE 100 MCG/2 ML VL IV ONE (16:40)
--- NOTE | 2024-09-02 16:42 | EPIDURAL ---
Anesthesia Procedural Note - Epidural Informed consent obtained?: Yes Medication Administered: Fentanyl 100 mcg Sterile prept drape: Yes Spinal level of insertion: L4-L5 Test dose of lidocaine & Epine: Negative Infusion started: Yes Start time: 16:10 End time: 16:40 Procedure description Procedure description: Called for labor analgesia. History taken, chart examined, patient examined at 1610. Patient is at term here for induction of labor. Patient requesting epidural. Informed consent for CSE obtained at 1611 (BP 130/74 HR 86 spO2 99). Sitting position, sterile prep and drape. Time out done. L4-5 space infiltrated with 1% lido. Epidural needle placed with SYMONE at 6cm. 25G spinal needle +clear CSF. 20mcg fentanyl given IT at 1617 (128/76 HR 87 spO2 98). Epidural catheter secure at 12cm. Aspiration and test dose (3cc 1.5% lido with epi) negative at 1618 (120/66 HR 77 spO2 99). 80mcg fentanyl given via epidural at 1820. Patient reporting good pain relief. 0.2% ropivacaine infusion started at 1629 (BP 119/61 HR 89 spO2 99). Will follow as needed. KIM AGUILAR MD Sep 02, 2024 16:42
[2024-09-02] MEDS: ONDANSETRON HCL 4 MG/2 ML VIAL IV PRN (16:43)
[2024-09-02] MEDS ORDERED: ONDANSETRON HCL 4 MG/2 ML VIAL ONE (16:44)
[2024-09-02] MEDS: FAMOTIDINE (10MG/ML) 2ML VL IV ONE (17:00)
--- NOTE | 2024-09-02 17:00 | DVHPN2 ---
OB Labor Progress Note Date and Time Seen Date Seen: Sep 02, 2024 Time Seen: 16:57 Subjective Patient reports: No new complaints, Feels better Objective Vital Signs Afeb VS stable Monitoring Method Monitoring Method: External Heart Rate Heart Rate Baseline: 140 Heart Rate Variability: Moderate Presence of FHR Accelerations: Yes Presence of FHR Decelerations: No Contractions Contractions Intensity: Moderate Contractions Resting Tone: Relaxed Membranes Membranes: Ruptured (AROM) Amniotic Fluid Color: Clear Vaginal Exam Vaginal Exam Dilation: 7 Vaginal Exam Effacement: 90 Vaginal Exam Station: -1 Vaginal Exam Presentation: VTX Vaginal Exam Show: Small Medications Medications - Pitocin: Yes Medication - Epidural: No Lab Results Lab Results Vital Signs Date Time Temp Pulse Resp B/P (MAP) Pulse Ox O2 Delivery O2 Flow Rate FiO2 09/02/24 16:40 130/74 09/02/24 08:55 86 18 Current Medications Medications (Trade) Dose Ordered Sig/Jono Start Time Stop Time Status Last Admin Dose Admin Lactated Ringer's 1,000 ml @ 125 mls/hr Q8H 09/01/24 19:45 09/02/24 15:11 125 MLS/HR Nalbuphine HCl (Nubain) 10 mg Q4HP PRN 09/01/24 19:45 09/02/24 08:55 10 MG Witch Shalini (Tucks) 1 pad PRN PRN 09/01/24 19:45 09/02/24 04:05 1 PAD Sodium Lauryl Sulfate (Phisoderm) 240 ml PRN PRN 09/01/24 19:45 09/02/24 04:05 240 ML Benzocaine (Dermoplast) 1 applic PRN PRN 09/01/24 19:45 09/02/24 04:05 1 APPLIC Butorphanol Tartrate (Stadol Injection) 1 mg Q4HPRN PRN 09/01/24 19:45 Butorphanol Tartrate (Stadol Injection) 2 mg Q4HPRN PRN 09/01/24 19:45 Lidocaine HCl (Xylocaine) 20 ml ONCE PRN 09/01/24 19:45 Misoprostol (Cytotec) 50 mcg Q4HPRN PRN 09/02/24 02:00 Oxytocin 1,000 ml @ 6 ml/hr Q24H 09/02/24 06:00 09/02/24 07:16 3 ML/HR Terbutaline Sulfate (Brethine Inj) 0.25 mg ONCE PRN 09/02/24 06:30 Oxytocin 500 ml @ 999 mls/hr Q31M ONCE 09/02/24 06:00 09/02/24 06:30 DC Oxytocin 500 ml @ 125 mls/hr Q4H ONCE 09/02/24 06:30 09/02/24 10:29 DC Ondansetron HCl (Zofran) 4 mg Q4HPRN PRN 09/02/24 06:30 09/02/24 16:43 4 MG Naloxone HCl (Narcan) 0.2 mg PRN ONCE 09/02/24 16:00 09/02/24 16:09 DC Ephedrine Sulfate (ePHEDrine SULFATE) 10 mg PRN ONCE 09/02/24 16:00 09/02/24 16:09 DC 09/02/24 16:40 10 MG Fentanyl Citrate 100 mcg ONCE ONCE 09/02/24 16:00 09/02/24 16:09 DC 09/02/24 16:40 100 MCG Lidocaine HCl (Xylocaine-Pf 2% Injection) 10 ml ONCE ONCE 09/02/24 16:00 09/02/24 16:09 DC Famotidine (Pepcid Injection) 20 mg ONCE ONCE 09/02/24 16:45 09/02/24 16:46 DC Ropivacaine (Naropin) 400 mg T@N ONCE 09/02/24 16:44 09/02/24 16:45 UNV Laboratory Tests Test 09/02/24 15:00 09/01/24 20:38 09/01/24 20:04 09/01/24 19:36 Range/Units POC Glucose 86 70-106 mg/dl Urine Color Yellow Yellow Urine Clarity Turbid H Clear Urine pH 6.5 5.0-9.0 Urine Specific [place] 1.022 1.001-1.035 Urine Protein Trace H Negative Urine Ketones Negative Negative Urine Blood Negative Negative /uL Urine Nitrite Negative Negative Urine Bilirubin Negative Negative Urine Urobilinogen Normal Negative mg/dL Urine Leukocyte Esterase 2+ Negative /uL Urine RBC 1 0 - 4 /hpf Urine Microscopic WBC 24 H 0-5 /HPF Urine Squamous Epithelial Cells Few <5 /hpf Urine Calcium Oxalate Crystals Mod None Seen Urine Bacteria Few H None Seen /hpf Urine Mucus Few None Seen Urine Glucose Normal Normal mg/dL Urine Opiates Screen Neg NEGATIVE Urine Fentanyl Screen Neg NEGATIVE Urine Barbiturates Screen Neg NEGATIVE Urine Phencyclidine Screen Neg NEGATIVE Urine Amphetamines Screen Neg NEGATIVE Urine Benzodiazepines Screen Neg NEGATIVE Urine Cocaine Screen Neg NEGATIVE Urine Cannabinoids Screen Neg NEGATIVE White Blood Count 8.8 4.4-10.8 10^3/uL Red Blood Count 3.77 L 4.0-5.20 10^6/uL Hemoglobin 9.7 L 12.2-16.2 g/dL Hematocrit 29.4 L 36.0-46.0 % Mean Corpuscular Volume 78.0 L 80.0-100.0 fL Mean Corpuscular Hemoglobin 25.6 L 28.0-32.0 pg Mean Corpuscular Hemoglobin Concent 32.9 32.0-36.0 g/dL Red Cell Distribution Width 14.6 H 11.8-14.3 % Platelet Count 235 140-450 10^3/uL Mean Platelet Volume 7.4 6.9-10.8 fL Neutrophils (%) (Auto) 65.0 37.0-80.0 % Lymphocytes (%) (Auto) 27.8 10.0-50.0 % Monocytes (%) (Auto) 6.4 0.0-12.0 % Eosinophils (%) (Auto) 0.4 0.0-7.0 % Basophils (%) (Auto) 0.4 0.0-2.0 % Neutrophils # (Auto) 5.7 1.6-8.6 10 ^3/uL Lymphocytes # (Auto) 2.5 0.4-5.4 10 ^3/uL Monocytes # (Auto) 0.6 0-1.3 10 ^3/uL Eosinophils # (Auto) 0 0-0.8 10 ^3/uL Basophils # (Auto) 0 0-0.2 10 ^3/uL Nucleated Red Blood Cells 0.1 % Prothrombin Time 9.6 9.3-11.8 sec Prothrombin Time INR 0.90 0.9-1.15 Activated Partial Thromboplast Time 25.2 24.5-34.5 SEC Sodium Level 137 136-145 mmol/L Potassium Level 3.6 3.5-5.1 mmol/L Chloride Level 104 98-107 mmol/L Carbon Dioxide Level 22 20-31 mmol/L Anion Gap 11 5-15 Blood Urea Nitrogen 9 9-23 mg/dL Creatinine 0.62 0.550-1.02 mg/dL Glomerular Filtration Rate Calc 128 >90 mL/min BUN/Creatinine Ratio 14.5 10.0-20.0 Serum Glucose 87 74-106 mg/dL Calcium Level 9.7 8.7-10.4 mg/dL Total Bilirubin 1.5 H 0.2-1.0 mg/dL Aspartate Amino Transferase (AST) 13 13-40 U/L Alanine Aminotransferase (ALT) 11 7-40 U/L Alkaline Phosphatase 164 H 46-116 U/L Total Protein 6.6 5.7-8.2 g/dL Albumin 4.3 3.2-4.8 g/dL Rapid Plasma Reagin Pending Treponema pallidum Ab (TP-PA) Pending Hepatitis C Antibody Negative Negative Chlamydia trachomatis (SIENNA) Pending Neisseria gonorrhoeae (SIENNA) Pending Assessment Assessment Induction of labor at Term, GDM s/p Amniotomy Plan Plan Continue labor mgmt Pitocin augmentation as needed Anticipated . Plan discussed with: Patient Visit Coding OBGYN Date of Service: Sep 02, 2024 Billing Provider: HECTOR MONTE DO ENGINEER SYSTEMS Common Visit Codes: NOT BILLABLE HECTOR MONTE DO Sep 02, 2024 17:00
[2024-09-02] MEDS: ROPIVACAINE HCL 400mg/200ml BAG (2mg/ml) EPI ONE (17:32)
[2024-09-02] MEDS ORDERED: METHYLERGONOVINE MALEATE 0.2 MG/ML AMP IM PRN (19:45)
[2024-09-02] MEDS: LACT. RINGERS/OXYTOCIN 20UNITS 500 ML IV ONE ×2 (21:07→21:18)
--- NOTE | 2024-09-02 21:13 | LDN2 ---
Labor and Delivery Note Date 09/02/24 Age 24 3 Para 3 EGA 39+ weeks Diagnosis GDMA1, Induction of labor Nuchal cord OP presentation Vaginal Delivery: VTX Vacuum Assisted: Yes Placenta: Spontaneous Sex: Female Weight Pending Apgars 8./9 Nuchal Cord Transected: No (Nuchal cord x 1, reduced at perineum following delivery of head) Amniotic Fluid: Clear Anesthesia Epidural Episiotomy: No Repaired with 1st deg vaginal/perineal laceration repaired w/ 3-0 Chromic EBL 50 mL Labs Blood Bank 09/01/24 20:04: Blood Type A POSITIVE Complications None Comments/Significant Med Eliane cord gas pH 7.28 FHR Category II in 2nd stage of labor Baby direct OP,mother unable to push effectively. Cervix fully dilated, + 3 station. Bladder empty. Pelvic exam deemed adequate for vaginal delivery. Verbal consent obtained for Vacuum extraction, R/B/A discussed Kiwi applied x 2, 3 pulls , pop off x 1. Successful extraction, no complications NO caput of cephalohematoma, baby doing well. Visit Coding OBGYN Date of Service: Sep 02, 2024 Billing Provider: HECTOR MONTE DO LABELLING MACHINE OPERATOR Common Visit Codes: PROCEDURE ONLY LABELLING MACHINE OPERATOR Procedure Codes: [id number] OB CARE,VAG DELIVERY (Vacuum extraction) HECTOR MONTE DO Sep 02, 2024 21:13
[2024-09-02 23:00] VITALS: BP 128/67; PULSE 88; RESP 16; TEMP 98.4; O2SAT 99
[2024-09-02] MEDS: IBUPROFEN 600 MG TAB PO PRN (23:25)
[2024-09-03] MEDS: ACETAMINOPHEN 325 MG TAB PO PRN (00:06)
[2024-09-03 03:00] VITALS: BP 104/56; PULSE 88; RESP 16; TEMP 98.6; O2SAT 99
[2024-09-03 07:00] VITALS: BP 99/57; PULSE 86; RESP 18; TEMP 98.8; O2SAT 99
[2024-09-03 08:07] LABS: RPR Non Reactive (Non Reactive)
[2024-09-03 11:22] VITALS: BP 113/69; PULSE 80; RESP 16; TEMP 97.7; O2SAT 98
[2024-09-03 14:30] VITALS: BP 94/62; PULSE 85; RESP 18; TEMP 98.8; O2SAT 98
[2024-09-03 19:00] VITALS: BP 96/59; PULSE 80; RESP 16; TEMP 98.3; O2SAT 97
[2024-09-03] MEDS ORDERED: DOCUSATE SOD 100 MG CAP PO SCH (22:00)
[2024-09-03 23:00] VITALS: BP 109/81; PULSE 77; RESP 18; TEMP 98.1; O2SAT 98
[2024-09-03] MEDS ORDERED: DOCU-265 PO (23:29)
[2024-09-03] MEDS ORDERED: IBU600T PO (23:29)
[2024-09-03] MEDS ORDERED: PREN-96 PO (23:29)
[2024-09-03] MEDS ORDERED: FER325T PO (23:30)
[2024-09-04] VITALS (7 sets, daily range): BP systolic 98–134; BP diastolic 63–86; PULSE 73–89; RESP 14–18; TEMP 97.7–98.4; O2SAT 97–99
--- NOTE | 2024-09-04 00:01 | DVHPN2 ---
Progress Note Date Seen: Sep 04, 2024 Subjective Pt is waiting for anesthesia to come and do a blood patch for her spinal headache. Her bleeding is less, eating food without issues, pain well controlled with oral medications, no concerns with urinating, passing flatus, no BM yet, ambulating well, well. vital signs Vital Sign Date Time Temp Pulse Resp B/P (MAP) Pulse Ox O2 Delivery O2 Flow Rate FiO2 09/03/24 19:00 98.3 80 16 96/59 (71) 97 98.3 09/03/24 19:00 Room Air Total Intake and Output 09/03/24 09/03/24 09/04/24 15:00 23:00 07:00 Output Total 400 ml 900 ml Balance -400 ml -900 ml medications Current Medications Medications Dose Ordered Sig/Jono Route Start Time Stop Time Status Last Admin Dose Admin Lactated Ringer's 1,000 ml @ 125 mls/hr Q8H IV 09/01/24 19:45 09/02/24 15:11 125 MLS/HR James Loya 1 pad PRN PRN TOP 09/01/24 19:45 09/02/24 04:05 1 PAD Sodium Lauryl Sulfate 240 ml PRN PRN TOP 09/01/24 19:45 09/02/24 04:05 240 ML Benzocaine 1 applic PRN PRN TOP 09/01/24 19:45 09/02/24 04:05 1 APPLIC Butorphanol Tartrate 1 mg Q4HPRN PRN IV 09/01/24 19:45 Cancel Butorphanol Tartrate 2 mg Q4HPRN PRN IV 09/01/24 19:45 Cancel Lidocaine HCl 20 ml ONCE PRN IJ 09/01/24 19:45 Cancel Misoprostol 50 mcg Q4HPRN PRN PO 09/02/24 02:00 Cancel Oxytocin 1,000 ml @ 6 ml/hr Q24H IV 09/02/24 06:00 09/02/24 07:16 3 ML/HR Terbutaline Sulfate 0.25 mg ONCE PRN SC 09/02/24 06:30 Cancel Ondansetron HCl 4 mg Q4HPRN PRN IV 09/02/24 06:30 09/02/24 16:43 4 MG Methylergonovine Maleate 0.2 mg Q8HP PRN IM 09/02/24 19:45 09/04/24 19:44 Cancel Ibuprofen 600 mg Q6HP PRN PO 09/02/24 22:30 09/03/24 14:09 600 MG Acetaminophen 650 mg Q4HP PRN PO 09/02/24 22:30 09/03/24 16:41 650 MG Docusate Sodium 200 mg HS PO 09/03/24 22:00 laboratory and microbiology Laboratory Tests 09/01/24 20:04 Test 09/01/24 20:04 Range/Units Serum Glucose 87 74-106 mg/dL Objective O: VSS Chest: heart sounds normal and lung sounds clear bilaterally Abd: soft, non-tender, fundus at U/firm/midline, active bowel sounds, no rebound or guarding Perineum: sutures intact, edges well approximated, no erythema/edema noted Ext: Non-tender, No edema, 2+ BLE DTRs Lochia: minimal See lab results Problems(with codes): (1) (normal spontaneous vaginal delivery) (2) Iron deficiency anemia of mother during (3) First degree perineal laceration during delivery Assessment/Plan A: 24yo now PPD#1 s/p Anemia Rh+ Rubella Non-Immune P: D/C home today CBC ordered for AM MMR vaccine ordered Rx sent to pharmacy precautions and preeclampsia warning signs reviewed F/U with [facility] office in 2 weeks Plan discussed with: Patient Visit Coding OBGYN Date of Service: Sep 04, 2024 Billing Provider: ELEANOR JAMES CNM COURTROOM DEPUTY OR CALENDAR CLERK Common Visit Codes: [id number] INP/OBS CARE(HIGH) ELEANOR JAMES CNM Sep 04, 2024 00:01
--- NOTE | 2024-09-04 00:01 | DVHDS2 ---
Obstetrics Discharge Summary Obstetrics Discharge Summary Date of Admission: Sep 01, 2024 Date of Discharge: Sep 04, 2024 Reason For Admission: Induction of Labor (GDM, A1 and hx of rapid labor) Procedures: NST Intrapartum Procedures: Spontaneous vaginal deliv Procedures: Hct/date: (09/04/24), Hgb/date: (09/04/24) Operative Complicat: Laceration (first degree), Vaginal Laceration Discharge Diagnosis: Term -Delivered Discharge Information: Activity (as tolerated, no heavy lifting and nothing in the vagina for 6 weeks), Diet (Routine), Medications (Rx sent), Instructions (Routine), Discharge to (Home), Accompanied by (partner), Discarge date (09/04/24) Visit Coding OBGYN Date of Service: Sep 04, 2024 Billing Provider: ELEANOR JAMES CNM TRIAGE REGISTER NURSE Common Visit Codes: [id number] DISCH DAY <30MIN ELEANOR JAMES CNM Sep 04, 2024 00:01
[2024-09-04 00:07] LABS: Chlamydia Trachomatis, NAA Negative (Negative); Neisseria gonorrhoeae, NAA Negative (Negative)
[2024-09-04 07:22] LABS: Basophils # (auto) 0 10 ^3/uL (0-0.2); Basophils % (auto) 0.3 % (0.0-2.0); Eosinophils # (auto) 0 10 ^3/uL (0-0.8); Eosinophils % (auto) 0.3 % (0.0-7.0); Hematocrit 32.7 % (36.0-46.0); Hemoglobin 10.5 g/dL (12.2-16.2); Lymphocytes # (auto) 3.3 10 ^3/uL (0.4-5.4); Lymphocytes % (auto) 25.2 % (10.0-50.0); Mean Corpuscular Hemoglobin 25.6 pg (28.0-32.0); Mean Corpuscular Volume 79.8 fL (80.0-100.0); Monocytes # (auto) 0.8 10 ^3/uL (0-1.3); Neutrophils % (auto) 68.2 % (37.0-80.0); Nucleated Red Blood Cells % 0.1 %; Platelet Count (auto) 239 10^3/uL (140-450); Red Cell Distribution Width 14.8 % (11.8-14.3); White Blood Cell 13.2 10^3/uL (4.4-10.8)
[2024-09-04] MEDS: MEASLES, MUMPS & RUBELLA VAC(MMRII) 0.5ML SC ONE (13:58)
[2024-09-04] MEDS: INFLUENZA TRIVALENT 2024-2025 0.5 ML INJ IM ONE (13:59)
[2024-09-04] MEDS: TETANUS-DIPTH-ACEL PERTUSSIS 0.5ML SYR Tdap IM ONE (14:01)
== END 2024-09-04 14:46 | disposition home or self-care (01) | DRG 560 ==
LOC: LDRP 19:01
PROVIDERS: ADMIT Obstetrics & Gynecology; ATTEND Obstetrics & Gynecology
PROC: 10E0XZZ Delivery of Products of Conception, External Approach (ICD-10-PCS; principal; 2024-09-02)
PROC: 0HQ9XZZ Repair Perineum Skin, External Approach (ICD-10-PCS; 2024-09-02)
PROC: 3E0R3BZ Introduction of Anesthetic Agent into Spinal Canal, Percutaneous Approach (ICD-10-PCS; 2024-09-02)
PROC: 00HU33Z Insertion of Infusion Device into Spinal Canal, Percutaneous Approach (ICD-10-PCS; 2024-09-02)
DX: O24.420 Gestational diabetes mellitus in childbirth, diet controlled (principal); Z37.0 Single live birth; B06.9 Rubella without complication; O98.52 Other viral diseases complicating childbirth; O70.0 First degree perineal laceration during delivery; O90.81 Anemia of the puerperium; O69.81X0 Labor and delivery complicated by cord around neck, without compression, not applicable or unspecified; Z14.8 Genetic carrier of other disease; Z3A.39 39 weeks gestation of pregnancy; Z23 Encounter for immunization
CPT/HCPCS: 36415; 59025; 59200; 59409; 62282; 80053; 80307; 81001; 82962; 85025; 85610; 85730; 86592; 86780; 86803; 86850; 86900; 86901; 90656; 90715; 94760; 94762; 96360; 96361; 96365; 96366; 96372; 96374; G0378; J2405; J2590; J3490